=== PATIENT | female | born 1995 | race Caucasian/White ===

== ENCOUNTER 2022-06-22 20:43 | Emergency (ER) | payer OTHER ==
[2022-06-22 21:15] LABS: Blood Gas Oxyhemoglobin 92.7 % (94-97)
[2022-06-22] MEDS ORDERED: NA CHLORIDE 0.9% 1,000 ML ONE (21:26)
[2022-06-22 21:54] LABS: Absolute Lymphocytes (CBC) 2.5 K/uL (0.7-4.9); Hematocrit 32.7 % (36.0-45.0); Lymphocytes % 42.1 % (15.3-44.8); MCV 76.3 fL (80-100); MPV 9.9 fL (7.6-11.3); RBC Red Blood Cell Count 4.28 M/uL (3.86-4.86)
[2022-06-22 22:06] LABS: Protime INR 0.94
[2022-06-22 22:14] LABS: Albumin 3.8 g/dL (3.4-5.0); Bilirubin Total 0.2 mg/dL (0.2-1.0); Potassium 3.5 mmol/L (3.5-5.1); Protein, Total 7.1 g/dL (6.4-8.2)
[2022-06-22 22:21] LABS: ALT/SGPT 15 U/L (13-56); AST/SGOT 14 U/L (15-37); Albumin 3.9 g/dL (3.4-5.0); Alkaline Phosphatase 44 U/L (45-117); Bilirubin Total 0.2 mg/dL (0.2-1.0); Protein, Total 7.4 g/dL (6.4-8.2)
[2022-06-22 22:22] LABS: Bilirubin Direct < 0.1 mg/dL (0-0.2)
[2022-06-22 23:08] LABS: Urine Blood Negative (Negative); Urine Glucose Negative (Negative); Urine Protein Negative (Negative)
[2022-06-22 23:24] LABS: Barbiturates NEGATIVE (NEGATIVE); Benzodiazepines POSITIVE (NEGATIVE); Cocaine NEGATIVE (NEGATIVE); METHAMPHETAM NEGATIVE (NEGATIVE); Methadone NEGATIVE (NEGATIVE); Opiates NEGATIVE (NEGATIVE); Phencyclidine NEGATIVE (NEGATIVE); THC Cannibis NEGATIVE (NEGATIVE); Urine Bacteria <20 /HPF (<20); Urine Mucus Slight /HPF (None Seen); Urine RBC <5 /HPF (None Seen)
[2022-06-23 03:57] VITALS: BP 103/66; TEMP 97.3; O2SAT 99
--- NOTE | 2022-06-24 13:05 | EKG ---
Test Date: 2022-06-22 Test Time: 22:57:04 [employer]: RV MEASUREMENT RESULTS: Intervals: Rate: 84 NC: 182 QRSD: 92 QT: 372 QTc: 439 [place]: P: 70 NC: 182 QRS: 67 T: 58 INTERPRETIVE STATEMENTS: Normal sinus rhythm Normal ECG No previous ECG available for comparison Electronically Signed On 06-24-22 13:03:04 CDT by Lobo Bennett
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
== END 2022-06-23 01:17 | disposition short-term general hospital (02) ==
LOC: ER 20:43
DX: T45.0X2A Poisoning by antiallergic and antiemetic drugs, intentional self-harm, initial encounter (principal); T42.4X2A Poisoning by benzodiazepines, intentional self-harm, initial encounter; I95.9 Hypotension, unspecified; Z20.822 Contact with and (suspected) exposure to COVID-19
CPT/HCPCS: 93005; 87040 ×2; 87088; 85025; 87086; 36415; 81025; 85610; 80076; 83605; 85730; 87077; 87186; 80053; 80307; 82805; 99284; U0003; J7030; G0480 ×3; 81003; 81015

== ENCOUNTER 2024-02-22 23:46 | Emergency (ER) | payer OTHER, SELFPAY ==
[2024-02-23 00:31] LABS: Absolute Eosinophils 0.2 K/uL (0-0.5); Absolute Lymphocytes (CBC) 1.8 K/uL (0.7-4.9); Absolute Monocytes 0.5 K/uL (0.1-1.3); Absolute Neutrophil 3.7 K/uL (1.8-8.0); Basophils % 0.4 % (0-1.3); Eosinophils % 3.3 % (0-4.4); Hematocrit 32.4 % (36.0-45.0); Hemoglobin 10.5 g/dL (12.0-15.0); Lymphocytes % 28.9 % (15.3-44.8); MCH 25.7 pg (27.0-35.0); MCHC 32.4 g/dL (32.0-36.0); MCV 79.2 fL (80-100); MPV 10.7 fL (7.6-11.3); Monocytes % 8.2 % (3.3-12.3); Neutrophils % 59.2 % (41.7-73.7); Platelets 168 thou/uL (152-406); RBC Red Blood Cell Count 4.09 M/uL (3.86-4.86); Red Cell Distribution Width 18.3 % (12.1-15.2)
[2024-02-23 00:43] LABS: PT Prothrombin Time 11.6 SECONDS (9.4-12.5); PTT, Activated Partial Thromb 32.6 SECONDS (24.3-36.9); Protime INR 1.04
[2024-02-23 00:44] LABS: AST/SGOT 11 U/L (15-37); Albumin 3.7 g/dL (3.4-5.0); Albumin/Globulin Ratio 1.1 (1.1-1.8); Alkaline Phosphatase 34 U/L (45-117); Anion Gap 8.4 mEq/L (5.0-15.0); BUN Blood Urea Nitrogen 8 mg/dL (7-18); Bicarbonate 25 mEq/L (21-32); Bilirubin Total 0.3 mg/dL (0.2-1.0); Globulin 3.5 g/dL (2.3-3.5); Glomerular Filtration Rate 116 ml/min (=/>90); Glucose Level 90 mg/dL (74-106); Potassium 3.4 mEq/L (3.5-5.1); Protein, Total 7.2 g/dL (6.4-8.2); Sodium Level 139 mEq/L (136-145)
[2024-02-23 00:47] LABS: ALT/SGPT < 14 U/L (13-56); Bilirubin Direct < 0.2 mg/dL (0-0.2); Bilirubin Indirect, Calculated 0.1 mg/dL (0.2-0.8)
[2024-02-23 01:53] LABS: Barbiturates NEGATIVE (NEGATIVE); Benzodiazepines POSITIVE (NEGATIVE); Cocaine NEGATIVE (NEGATIVE); METHAMPHETAM NEGATIVE (NEGATIVE); Methadone NEGATIVE (NEGATIVE); Opiates NEGATIVE (NEGATIVE); Phencyclidine NEGATIVE (NEGATIVE); THC Cannibis POSITIVE (NEGATIVE)
[2024-02-23 01:55] LABS: Specific Gravity 1.011 (1.005-1.030); Sqamous Epithelial <5 /HPF (None Seen); Urine Bacteria >50 /HPF (<20); Urine Bilirubin NEGATIVE (Negative); Urine Blood Negative (Negative); Urine Clarity Extremely Turbid (Clear); Urine Color Light-Yellow (Yellow); Urine Culture Reflex Order NOT NEEDED; Urine Glucose NEGATIVE (Negative); Urine Ketones NEGATIVE (Negative); Urine Microscopic Reflex YN ORDER UMIC; Urine Mucus Slight /HPF (None Seen); Urine Nitrite NEGATIVE (Negative); Urine Protein NEGATIVE (Negative); Urine RBC <5 /HPF (None Seen); Urine Urobilinogen Normal (Normal); Urine pH 6.5 (5.0-7.0)
[2024-02-23 01:56] LABS: Specific Gravity 1.011 (1.005-1.030)
--- NOTE | 2024-02-23 02:08 | ER ---
Nurse's Notes [facility] Name: Joy Benavidez Age: 28 yrs Sex: Female : 1995 Arrival Date: 02/22/2024 Time: 23:46 Bed 16 Private MD: Diagnosis: Suicidal ideations Presentation: 02/21 23:46 Chief complaint: Law enforcement states they received a call from [place] Police cp4 regarding posts made to social media about patient possible hurting herself. Police found patient at the [facility] in [place]. Patient states she has no intent of hurting herself and got the hotel room to "calm myself and relax". 23:46 Coronavirus screen: Client denies travel out of the [place] in the last 14 days. At this cp4 time, the client does not indicate any symptoms associated with coronavirus-19. Ebola Screen: Patient negative for fever greater than or equal to 101.5 degrees Fahrenheit, and additional compatible Ebola Virus Disease symptoms Patient denies exposure to infectious person. Patient denies travel to an Ebola-affected area in the 21 days before illness onset. No symptoms or risks identified at this time. Initial Sepsis Screen: Does the patient meet any 2 criteria? No. Patient's initial sepsis screen is negative. Does the patient have a suspected source of infection? No. Patient's initial sepsis screen is negative. Risk Assessment: Do you want to hurt yourself or someone else? Patient reports no desire to harm self or others. Onset of symptoms was February 21, 2024. 23:46 Method Of Arrival: Law Enforcement: Yudy VALADEZ cp4 23:46 Acuity: LUCIE 2 cp4 Triage Assessment: 23:46 General: Appears in no apparent distress. comfortable, Behavior is calm, cooperative, cp4 appropriate for age. Pain: Denies pain. EENT: No signs and/or symptoms were reported regarding the EENT system. Neuro: Level of Consciousness is awake, alert, obeys commands, Oriented to person, place, time, situation. Cardiovascular: No deficits noted. Respiratory: Airway is patent Respiratory effort is even, unlabored. GI: No signs and/or symptoms were reported involving the gastrointestinal system. : No signs and/or symptoms were reported regarding the genitourinary system. Derm: No signs and/or symptoms reported regarding the dermatologic system. Musculoskeletal: No signs and/or symptoms reported regarding the musculoskeletal system. DIGITAL COURT REPORTER: 23:46 Not cp4 Historical: - Allergies: 23:46 No Known Allergies; cp4 - PMHx: 23:00 None; rs5 - PSHx: 23:00 None; rs5 - Immunization history:: Adult Immunizations up to date. - Infectious Disease History:: Denies. - Social history:: Smoking status: Reported history of juuling and/or vaping. Screenin:46 [facility] ED Fall Risk Assessment (Adult) History of falling in the last 3 months, cp4 including since admission No falls in past 3 months (0 pts) Confusion or Disorientation No (0 pts) Intoxicated or Sedated No (0 pts) Impaired Gait No (0 pts) Mobility Assist Device Used No (0 pt) Altered Elimination No (0 pt) Score/Fall Risk Level 0 - 2 = Low Risk Oriented to surroundings, Maintained a safe environment, Assessed \\T\\ reinforced patient's understanding of fall precautions, Hourly rounding (assess needs \\T\\ fall precautionary measures) done. Abuse screen: Denies threats or abuse. Nutritional screening: No deficits noted. Tuberculosis screening: No symptoms or risk factors identified. Assessment: 23:46 Reassessment: No changes from previously documented assessment. cp4 02/22 00:54 Reassessment: Patient appears in no apparent distress at this time. Patient and/or cp4 family updated on plan of care and expected duration. Pain level reassessed. Patient is alert, oriented x 3, equal unlabored respirations, skin warm/dry/pink. General:. 02:00 Reassessment: Patient appears in no apparent distress at this time. Patient and/or cp4 family updated on plan of care and expected duration. Pain level reassessed. Patient is alert, oriented x 3, equal unlabored respirations, skin warm/dry/pink. 03:00 Reassessment: Patient appears in no apparent distress at this time. Patient and/or cp4 family updated on plan of care and expected duration. Pain level reassessed. Patient is alert, oriented x 3, equal unlabored respirations, skin warm/dry/pink. 04:00 Reassessment: Patient appears in no apparent distress at this time. Patient and/or cp4 family updated on plan of care and expected duration. Pain level reassessed. Patient is alert, oriented x 3, equal unlabored respirations, skin warm/dry/pink. 05:00 Reassessment: Patient appears in no apparent distress at this time. Patient and/or cp4 family updated on plan of care and expected duration. Pain level reassessed. Patient is alert, oriented x 3, equal unlabored respirations, skin warm/dry/pink. 06:00 Reassessment: Patient appears in no apparent distress at this time. Patient and/or cp4 family updated on plan of care and expected duration. Pain level reassessed. Patient is alert, oriented x 3, equal unlabored respirations, skin warm/dry/pink. 07:00 General: Appears in no apparent distress. comfortable, Behavior is calm, cooperative. rs5 Pain: Denies pain. Neuro: Level of Consciousness is awake, alert, obeys commands, Oriented to person, place, time, situation. Cardiovascular: Patient's skin is warm and dry. Respiratory: Airway is patent Respiratory effort is even, unlabored, Respiratory pattern is regular, symmetrical. GI: Abdomen is round non-distended, Abd is soft and non tender X 4 quads. : No signs and/or symptoms were reported regarding the genitourinary system. EENT: No signs and/or symptoms were reported regarding the EENT system. Derm: Skin is intact, Skin is pink, warm \\T\\ dry. Musculoskeletal: Range of motion: intact in all extremities. 07:00 Reassessment: to bedside for C-SSRS screening, pt denies SI or HI ideation. Sitter at [email or web address] bedside . 09:53 Reassessment: pt ripped out IV and walked out, félix xie called, MONIKA contacted. rs5 10:08 Reassessment: pt escorted back to room by MONIKA, provider at bedside. rs5 11:22 Reassessment: Patient and/or family updated on plan of care and expected duration. Pain rs5 level reassessed. Patient is alert, oriented x 3, equal unlabored respirations, skin warm/dry/pink. 12:30 Reassessment: report given to EMS at bedside for transport . rs5 Psych: 02/21 23:46 [place] Suicide Severity Screening: In the past month, have you wished you were cp4 or wished you could go to sleep and not wake up? Patient responds "No." "In the past month, have you actually had any thoughts of killing yourself?" Patient responds "no." "In your lifetime, have you ever done anything, started to do anything, or prepared to do anything to end your life?" Patient responds "no.". Subjective: Patient's mood is sad, Delusions are denied, Hallucinations are denied Having thoughts of no suicidal or homicidal thoughts. Objective: Patient is cooperative, Speech is normal, Affect is appropriate, Patient has mutilated themselves by none. Interventions: Removed personal items and placed in bag. Patient placed in hospital gown. Searched person for dangerous items. Urine collected and sent for urine drug test. Belonging list filled out. 23:46 Safety Checks: Personal items have been removed. Door is open. No visitors are present cp4 at this time. Patient uses marijuana. Commitment: Patient will be an involuntary commitment. JON in place. Vital Signs: 23:46 BP 101 / 67; Pulse 70; Resp 16; Temp 98.1; Pulse Ox 96% ; Weight 56.7 kg; Height 5 ft. cp4 4 in. ; Pain 0/10; 02/22 02:00 BP 104 / 62; Pulse 68; Resp 16 S; Pulse Ox 97% on R/A; lg3 07:01 BP 110 / 65; Pulse 74; Resp 17; Pulse Ox 99% on R/A; rs5 12:20 BP 107 / 66; Pulse 70; Resp 17; Pulse Ox 99% on R/A; rs5 02/21 23:46 Body Mass Index 21.46 (56.70 kg, 162.56 cm) cp4 02/21 23:46 Pain Scale: Adult cp4 ED Course: 02/21 23:46 No provider procedures requiring assistance completed. cp4 23:46 Arm band placed on right wrist. Patient placed in waiting room. cp4 23:46 Placed in gown. Bed in low position. Side rails up X2. Provided Education on: suicide cp4 precautions. 23:47 Patient arrived in ED. lg3 23:58 Cameron Cardenas PA is PHCP. cp 23:58 Erik Miguel MD is Attending Physician. cp 02/22 00:00 Maine Perez is Primary Nurse. cp4 00:06 Triage completed. cp4 00:06 EKG done, by chemistry laboratory technician. af3 00:21 Acetaminophen Sent. af3 00:21 Basic Metabolic Panel Sent. af3 00:21 CBC with Diff Sent. af3 00:21 ETOH Level Sent. af3 00:21 Hepatic Function Sent. af3 00:21 PT-INR Sent. af3 00:21 Ptt, Activated Sent. af3 00:21 Salicylate Sent. af3 01:26 Urine Drug Screen Sent. af3 01:26 Urinalysis w/ reflexes Sent. af3 01:26 Test, Urine Sent. af3 02:49 Called [facility]. sp 02:53 talked to Kenan with [facility]. sp 03:11 Elizabeth with [facility] called and stated no one will be able to come to the hospital sp until 6 am. 09:09 faxed chart to [facility]. bd 09:16 faxed chart to [facility]. bd 09:29 pt accepted in transfer to [facility] by dr taylor admin approval given by Geoffrey Valdovinos. 10:24 Attending Physician role handed off by Erik Miguel MD gb1 10:24 Mary Londono MD is Attending Physician. gb1 10:57 faxed application for transfer warrant to key person Rapes office. bd 12:13 was unable to obtain transfer warrant due to today being a holiday and judges are not bd in the office. 12:30 IV discontinued, intact, bleeding controlled, No redness/swelling at site. Pressure rs5 dressing applied. Administered Medications: 02:16 Drug: Potassium PO Effervescent Tablet 25 mEq PO once; dissolve in 4 ounces of water or cp4 juice Route: PO; 04:05 Follow up: Response: No adverse reaction cp4 02:17 Drug: Rocephin IV 1 grams IV at calculated rate once; Given slow IV push per pharmacy cp4 instructions Route: IV; Rate: calculated rate; Site: left antecubital; 02:20 Follow up: Response: No adverse reaction; IV Status: Completed infusion cp4 Medication: 02/21 23:46 VIS not applicable for this client. cp4 Outcome: 02/22 02:08 ER care complete, transfer ordered by . cp 12:30 Transferred by ground EMS Transfer form completed. rs5 12:30 Condition: stable 12:30 Instructed on the need for transfer, 12:32 Patient left the ED. rs5 Signatures: Juliet Arizmendi Shawna sp Page, Corey, PA PA cp Able, Lacie RN RN lg3 Scotty Cordon, RN RN rs5 Mary Londono MD MD gb1 Maine Perez cp4 Lisa Goss af3 Corrections: (The following items were deleted from the chart) 08:54 07:00 Reassessment: to bedside for C-SSRS screening, pt denies SI or HI ideation. rs5 rs5 10:08 09:53 Reassessment: pt ripped out IV and walked out, code xie called. rs5 rs5 10:11 10:08 Reassessment: pt escorted back to room by [employer]. rs5 rs5
--- NOTE | 2024-02-23 02:08 | EDPHYS ---
Physician Documentation [facility] Name: Joy Benavidez Age: 28 yrs Sex: Female : 1995 Arrival Date: 02/22/2024 Time: 23:46 Bed 16 Private MD: ED Physician Mary Londono HPI: 02/22 00:05 This 28 yrs old Female presents to ER via Law Enforcement with complaints of Suicidal cp Ideation. 00:05 Patient is a 28-year-old female with no significant past medical history who is brought cp in to the emergency department by EMS and accompanied by alone for Martin after being emergency detained due to concern for suicidal ideations. Patient reportedly posted on Facebook that she will be missed. Subsequently a health and welfare check was done and patient was brought to the emergency department for evaluation. Patient denies any suicidal ideations at this time. PROCESS ANALYST: 02/21 23:46 Not cp4 Historical: - Allergies: 23:46 No Known Allergies; cp4 - PMHx: 23:00 None; rs5 - PSHx: 23:00 None; rs5 - Immunization history:: Adult Immunizations up to date. - Infectious Disease History:: Denies. - Social history:: Smoking status: Reported history of juuling and/or vaping. ROS: 02/22 00:10 Constitutional: HX per HPI cp Exam: 00:10 ECG was reviewed by the Attending Physician. cp 00:10 Head/Face: Normocephalic, atraumatic. cp 00:10 Constitutional: The patient appears in no acute distress, alert, awake, non-diaphoretic, non-toxic, well developed, well nourished, 00:10 Eyes: Periorbital structures: appear normal, Conjunctiva: normal, no exudate, no injection, Sclera: no appreciated abnormality, Lids and lashes: appear normal, bilaterally, 00:10 ENT: External ear(s): are unremarkable, Nose: is normal, Mouth: Lips: moist, Oral mucosa: pink and intact, moist, Posterior pharynx: Airway: no evidence of obstruction, patent, 00:10 Neck: ROM/movement: is normal, is supple, without pain, no range of motions limitations, 00:10 Chest/axilla: Inspection: normal, 00:10 Cardiovascular: Rate: normal, Rhythm: regular, 00:10 Respiratory: the patient does not display signs of respiratory distress, Respirations: normal, no use of accessory muscles, no retractions, labored breathing, is not present, Breath sounds: are clear throughout, no decreased breath sounds, no stridor, no wheezing, 00:10 Abdomen/GI: Inspection: abdomen appears normal, 00:10 Neuro: Orientation: to person, place \T\ time. Mentation: is normal, Motor: moves all cp fours, strength is normal, Vital Signs: 02/21 23:46 BP 101 / 67; Pulse 70; Resp 16; Temp 98.1; Pulse Ox 96% ; Weight 56.7 kg; Height 5 ft. cp4 4 in. ; Pain 0/10; 02/22 02:00 BP 104 / 62; Pulse 68; Resp 16 S; Pulse Ox 97% on R/A; lg3 07:01 BP 110 / 65; Pulse 74; Resp 17; Pulse Ox 99% on R/A; rs5 12:20 BP 107 / 66; Pulse 70; Resp 17; Pulse Ox 99% on R/A; rs5 02/21 23:46 Body Mass Index 21.46 (56.70 kg, 162.56 cm) cp4 02/21 23:46 Pain Scale: Adult cp4 MDM: 02/21 23:59 Medical Screening Exam initiated cp 02/22 02:05 Data reviewed: vital signs, nurses notes, lab test result(s), EKG. cp 08:00 Transition of care: Care assumed from Erik Miguel MD. gb1 08:00 ED course: Pt at or around 10 am tried to elope from the ED as she was under an JON. gb1 She voiced to me that she was suicidal, and made a threat to take her life on facebook this past evening. She did elope on foot, and was returned to the ED, bed 20 by PD. She is not being transported to [facility].. 02/22 00:00 Order name: Acetaminophen; Complete Time: 01:59 cp 02/22 00:00 Order name: Basic Metabolic Panel; Complete Time: 01:59 cp 02/22 01:59 Interpretation: Normal except: K 3.4; CL 109. cp 02/22 00:00 Order name: CBC with Diff; Complete Time: 01:59 cp 02/22 01:59 Interpretation: Normal except: HGB 10.5; HCT 32.4; MCV 79.2; MCH 25.7; RDW 18.3. cp 02/22 00:00 Order name: ETOH Level; Complete Time: cp 02/22 00:00 Order name: Hepatic Function; Complete Time: cp 02/22 01:59 Interpretation: Normal except: AST 11; ALK 34; IBILI, CALC 0.1. cp 02/22 00:00 Order name: PT-INR; Complete Time: cp 02/22 00:00 Order name: Test, Urine; Complete Time: cp 02/22 00:00 Order name: Ptt, Activated; Complete Time: cp 02/22 00:00 Order name: Salicylate; Complete Time: cp 02/22 00:00 Order name: Urinalysis w/ reflexes; Complete Time: cp 02/22 02:00 Interpretation: Normal except: [facility] Extremely Turbid; UESTR 250; UBACT >50; REEP 5-10. 02/22 00:00 Order name: Urine Drug Screen; Complete Time: cp 02/22 02:00 Interpretation: BZO POSITIVE; THC POSITIVE. cp 02/22 00:00 Order name: EKG; Complete Time: 00:00 cp 02/22 00:00 Order name: EKG - Nurse/Tech; Complete Time: 00:06 cp 02/22 00:00 Order name: IV Saline Lock; Complete Time: 00:21 cp 02/22 00:00 Order name: Labs collected and sent; Complete Time: 00:21 cp 02/22 00:00 Order name: Suicide Precautions; Complete Time: 00:53 cp 02/22 00:00 Order name: Suicide Screening ([place]); Complete Time: 00:53 cp EC:10 Rate is 69 beats/min. Rhythm is regular. TX interval is normal. QRS interval is normal. cp QT interval is normal. T waves are Inverted in lead aVR. Interpreted by me. Reviewed by me. Administered Medications: 02:16 Drug: Potassium PO Effervescent Tablet 25 mEq PO once; dissolve in 4 ounces of water or cp4 juice Route: PO; 04:05 Follow up: Response: No adverse reaction cp4 02:17 Drug: Rocephin IV 1 grams IV at calculated rate once; Given slow IV push per pharmacy cp4 instructions Route: IV; Rate: calculated rate; Site: left antecubital; 02:20 Follow up: Response: No adverse reaction; IV Status: Completed infusion cp4 Disposition: 17:58 I reviewed the patient's care provided by the Advanced Practice Provider and agree with gb1 the diagnosis and treatment plan. Disposition Summary: 02/23/24 02:08 Transfer Ordered Notes: Transfer Location: [facility] Facility cp Reason: Higher level of care cp Condition: Stable cp Problem: new cp Symptoms: are unchanged cp Accepting Physician: Doctor(02/23/24 12:32) rs5 Diagnosis - Suicidal ideations cp Forms: - Medication Reconciliation Form cp - SBAR form cp Critical care time excluding procedures: 08:00 Critical care time: Bedside Care: 75 minutes, Consultation: 15 minutes. Total time: 90 gb1 minutes Signatures: Dispatcher [employer] EDCA Cameron Cardenas PA PA cp Sotelo, Ricky, RN RN rs5 Mary Londono MD MD gb1 Maine Perez cp4 Corrections: (The following items were deleted from the chart) 00:00 00:00 ACETAMINOPHEN+C.LAB.BRZ ordered. EDMS EDMS 00:00 00:00 BASIC METABOLIC PANEL+C.LAB.BRZ ordered. EDCA EDMS 00:00 00:00 CBC+H.LAB.BRZ ordered. EDCA EDMS 00:00 00:00 ETHANOL+C.LAB.BRZ ordered. EDCA EDMS 00:01 00:00 HEPATIC FUNCTION+C.LAB.BRZ ordered. EDCA EDMS 00:01 00:00 PROTIME (+INR)+COAG.LAB.BRZ ordered. EDCA EDMS 00:01 00:00 Test, Urine+UC.LAB.BRZ ordered. EDCA EDMS 00:01 00:00 PTT, ACTIVATED+COAG.LAB.BRZ ordered. EDCA EDMS 00:01 00:00 SALICYLATE+C.LAB.BRZ ordered. EDCA EDMS 00:01 00:00 Urinalysis+U.LAB.BRZ ordered. EDCA EDMS 00:01 00:00 URINE DRUG SCREEN+UC.LAB.BRZ ordered. EDCA EDMS 12:32 02:08 Doctor jaimie rs5
[2024-02-23] MEDS ORDERED: POTASSIUM 25 MEQ EFFERV TAB ONE (02:14)
[2024-02-23] MEDS ORDERED: CEFTRIAXONE 1000 MG/VIAL ONE (02:14)
--- NOTE | 2024-02-23 12:02 | EKG ---
Test Date: 2024-02-23 Test Time: 00:00:08 Sourcing Specialist: NADIRA MEASUREMENT RESULTS: Intervals: Rate: 69 DC: 172 QRSD: 86 QT: 368 QTc: 394 [place]: P: 70 DC: 172 QRS: 62 T: 20 INTERPRETIVE STATEMENTS: Normal sinus rhythm Normal ECG Compared to ECG 06/22/2022 22:57:04 No significant changes Electronically Signed On 02-23-24 12:01:34 CABINETMAKER APPRENTICE by Ian Woody
[2024-02-23 12:42] VITALS: TEMP 98.1
[2024-02-23 12:44] VITALS: BP 110/65; O2SAT 99
== END 2024-02-23 12:32 ==
LOC: ER 23:46
DX: R45.851 Suicidal ideations (principal)
CPT/HCPCS: 36415; 80048; 80076; 80143; 80179; 80307; 81001; 81025; 82077; 85025; 85610; 85730; 93005; 96374; 99285; J0696